=== PATIENT | female | born 1930 | race Caucasian/White ===

== ENCOUNTER → 2016-06-30 | Outpatient (CLI) | payer MEDICARE | LOC: LAB.O 09:13 | PROVIDERS: ATTEND Internal Medicine Interventional Cardiology | DX: Z01.810 Encounter for preprocedural cardiovascular examination (principal); Z01.812 Encounter for preprocedural laboratory examination; R07.9 Chest pain, unspecified ==

== ENCOUNTER → 2016-11-07 | Outpatient (CLI) | payer MEDICARE ==
--- NOTE | 2016-11-07 15:58 | CT ---
EXAM DESCRIPTION: Head CLINICAL HISTORY: HEADACHE COMPARISON: None TECHNIQUE: Noncontrast transaxial CT images of the head are obtained from base to vertex. This exam was performed according to our departmental dose-optimization program, which includes automated exposure control, adjustment of the mA and/or kV according to patient size and/or use of iterative reconstruction technique. FINDINGS: The midline structures are not displaced. Sulci are age-appropriate. There are areas of decreased attenuation in the periventricular white matter and the white matter of the centrum semiovale. There is no evidence of mass, mass-effect, hydrocephalus, or acute intracranial hemorrhage. No abnormal extra axial fluid collection is seen. Bone windows show no evidence of depressed skull fracture. Moderate calcifications of the intracranial carotid arteries are seen. Mild mucosal thickening is seen in some of the ethmoid air cells. IMPRESSION: 1. Age-appropriate atrophy with evidence of old small vessel ischemic type changes seen. 2. No acute abnormality is seen on noncontrast CT of the head. Electronically signed by: Ryan Elliott MD 11/07/2016 3:57 PM CDT
--- NOTE | 2016-11-07 16:03 | CT ---
EXAM DESCRIPTION: Cervical Spine CLINICAL HISTORY: NECK PAIN COMPARISON: None available. TECHNIQUE: Axial noncontast CT of the cervical spine with coronal and sagittal reformats. This exam was performed according to our departmental dose-optimization program, which includes automated exposure control, adjustment of the mA and/or kV according to patient size and/or use of iterative reconstruction technique. FINDINGS: Osseous structures are diffusely osteopenic. No acute fracture or posttraumatic positional abnormality of the cervical spine is seen. Mild disc space narrowing and spondylitic changes of the cervical spine is seen with multilevel facet arthropathy most significant on the right at C4-5. No significant spinal canal stenosis seen. No significant foraminal encroachment. Degenerative changes between the anterior arch of C1 and the odontoid are seen. Visualized skull base is unremarkable. Soft tissues show severe right and mild left carotid artery calcifications with evidence of previous left carotid endarterectomy. IMPRESSION: No CT evidence of acute fracture or posttraumatic positional abnormality of the cervical spine. Spondylitic changes and facet arthropathy of the cervical spine are seen. Severe right carotid artery calcifications are noted. Electronically signed by: Ryan Elliott MD 11/07/2016 4:02 PM CDT Workstation: [id number]
== END | disposition home or self-care (01) ==
LOC: CT 15:27
PROVIDERS: ATTEND Family Medicine
DX: M54.2 Cervicalgia (principal); R51 Headache

== ENCOUNTER → 2016-12-07 | Outpatient (CLI) | payer MEDICARE | END | disposition home or self-care (01) | LOC: GMAB 14:25 | PROVIDERS: ATTEND Family Medicine | DX: M25.572 Pain in left ankle and joints of left foot (principal) ==

== ENCOUNTER 2016-12-12 07:45 | Emergency (ER) | payer MEDICARE ==
[2016-12-12 08:00] VITALS: TEMP 97.8
[2016-12-12] MEDS ORDERED: SODIUM CHLORIDE 0.9% 500ML 500 ML IVS ONE (08:20)
[2016-12-12] MEDS ORDERED: ONDANSETRON INJ 4 MG/2 ML VIAL IV ONE (08:20)
--- NOTE | 2016-12-12 08:21 | ED.PDOC ---
History of Present Illness - General Chief Complaint: GI Problem Stated Complaint: N/V/D Time Seen by Provider: 12/12/16 08:18 Source: patient Exam Limitations: no limitations - History of Present Illness Initial Comments: Lavinia Eaton 86 y/o female stated that 3 days ago had nausea vomiting unable to keep anything down then yesterday had watery diarrhea no abdominal pain but with occassional cramps abdomen,no blood in stools Primary md called up prescription for phenergan took medication but not any better. Timing/Duration: other - 3 days Improving Factors: nothing Worsening Factors: eating Associated Symptoms: loss of appetite Allergies/Adverse Reactions: Allergies Penicillins Allergy (Verified 12/12/16 08:01) Home Medications: Ambulatory Orders Amlodipine Besylate [Norvasc] 10 mg PO HS 05/08/13 Aspirin [Aspirin 81] 162 mg PO HS 05/08/13 Esomeprazole Magnesium [Nexium] 40 mg PO AM 05/08/13 Levothyroxine Sodium [Synthroid] 125 mcg PO AM 05/08/13 Lovastatin 40 mg PO HS 05/08/13 Nebivolol HCl [Bystolic] 5 mg PO HS 05/08/13 Furosemide [Lasix] 20 mg PO BID #60 tab 05/10/13 Potassium Chloride Microencaps [Potassium Chloride Cr] 10 meq PO BID #60 tab Review of Systems - Review of Systems Constitutional: States: no symptoms reported EENTM: States: no symptoms reported Respiratory: States: no symptoms reported Cardiology: States: no symptoms reported Gastrointestinal/Abdominal: States: see HPI Genitourinary: States: no symptoms reported Musculoskeletal: States: no symptoms reported Skin: States: no symptoms reported Neurological: States: no symptoms reported Endocrine: States: no symptoms reported Hematologic/Lymphatic: States: no symptoms reported Past Medical History (General) - Patient Medical History Hx Cardiac Disorders: Yes Hx Congestive Heart Failure: Yes Hx Pacemaker: No Hx Hypertension: Yes Hx Thyroid Disease: Yes Hx Diabetes: No Hx Gastroesophageal Reflux: Yes Hx Cancer: Yes - breast left Hx MRSA: No Surgical History: cholecystectomy, other - left mastectomy,cardiac stent - Vaccination History Hx Tetanus, Diphtheria Vaccination: Yes - Social History Hx Tobacco Use: No Hx Alcohol Use: No Hx Substance Use: No Hx Substance Use Treatment: No Hx Depression: No - Activities of Daily Living Patient Lives Alone: Yes Hospice Agency (if applicable):: None Grooming Ability: Independent Eating (Feeding) Ability: Independent Toileting Ability: Independent - Female History Patient is a Female of Child Bearing Age (10 -59 yrs old): No Patient : No Family Medical History - Family History Mother Family History: Unknown Hx Cardiac Disease: Yes - multiple family members Hx Family Cancer: Yes - multiple family members-breast cancer,lymphoma Hx Family;Other: esophageal cancer son Physical Exam - Physical Exam General Appearance: Alert, Comfortable, No apparent distress Eye Exam: bilateral normal Ears, Nose, Throat: hearing grossly normal, normal ENT inspection, normal pharynx Neck: non-tender, full range of motion, supple Respiratory: chest non-tender, lungs clear, normal breath sounds, no respiratory distress Cardiovascular/Chest: normal peripheral pulses, no edema, no murmur, systolic murmur - g3/6 2nd ics left Peripheral Pulses: radial,right: 1+, radial,left: 1+ Gastrointestinal/Abdominal: normal bowel sounds, non tender, soft, no organomegaly Back Exam: normal inspection, no CVA tenderness Extremity: normal range of motion, non-tender, no pedal edema, no calf tenderness Neurologic: no motor/sensory deficits, alert, normal mood/affect, oriented x 3 Skin Exam: normal color, warm/dry Lymphatic: no adenopathy Progress - Progress Progress: 12/12/16 08:21 Vital Signs - 8 hr 12/12/16 07:51 Temperature 97.8 F Pulse Rate [ 97 H pulse ox] Respiratory 18 Rate Blood Pressure 148/64 [right arm] O2 Sat by Pulse 94 L Oximetry 12/12/16 11:33 12/12/16 08:20 URINALYSIS Stat 12/12/16 08:49 CLOSTRIDIUM DIFFICILE AG/TOXIN Stat Laboratory Results - last 24 hr 12/12/16 12/12/16 08:40 08:40 WBC 5.6 RBC 4.98 Hgb 14.4 Hct 43.8 MCV 88.0 MCH 28.9 MCHC 32.9 L RDW 14.1 Plt Count 271 MPV 8.1 Absolute Neuts (auto) 4.90 Absolute Lymphs (auto) 0.50 L Absolute Monos (auto) 0.20 Absolute Eos (auto) 0.00 Absolute Basos (auto) 0.00 Neutrophils % 86.7 H Lymphocytes % 9.7 L Monocytes % 3.3 Eosinophils % 0.0 L Basophils % 0.3 Sodium 138 Potassium 3.3 L Chloride 102 Carbon Dioxide 24 Anion Gap 15.3 BUN 26 H Creatinine 0.87 BUN/Creatinine Ratio 29.9 H Random Glucose 180 H Serum Osmolality 285.0 Calcium 9.6 - Results/Orders Results/Orders: FEELING BETTER. Departure - Departure Clinical Impression: Electrolyte imbalance, Abdominal cramping, generalized Nausea & vomiting Qualifiers: Vomiting type: unspecified Vomiting Intractability: unspecified Qualified Code( s): R11.2 - Nausea with vomiting, unspecified Diarrhea Qualifiers: Diarrhea type: unspecified type Qualified Code(s): R19.7 - Diarrhea, unspecified Time of Disposition: 11:30 Disposition: Discharge to Home or Self Care Condition: Good Departure Forms: ED Discharge - Pt. Copy, Patient Portal Self Enrollment Instructions: DI for Vomiting -- Adult, Probiotics May Decrease Intensity and Duration of Diarrhea Due to Infection, Nausea and Vomiting-Adult Diet: bland diet, other - AVOID GREASY,SPICY and dairy food until better Referrals: Jesús Valdovinos MD [Primary Care Provider] - 1-2 Weeks Home Medications: Ambulatory Orders Amlodipine Besylate [Norvasc] 10 mg PO HS 05/08/13 Aspirin [Aspirin 81] 162 mg PO HS 05/08/13 Esomeprazole Magnesium [Nexium] 40 mg PO AM 05/08/13 Levothyroxine Sodium [Synthroid] 125 mcg PO AM 05/08/13 Lovastatin 40 mg PO HS 05/08/13 Nebivolol HCl [Bystolic] 5 mg PO HS 05/08/13 Furosemide [Lasix] 20 mg PO BID #60 tab 05/10/13 Potassium Chloride Microencaps [Potassium Chloride Cr] 10 meq PO BID #60 tab Additional Instructions: RETURN TO EMERGENCY ROOM NEEDED
[2016-12-12] MEDS ORDERED: SUCRALFATE 1 GM/10 ML 1 GM UD PO ONE (10:34)
[2016-12-12 11:46] VITALS: BP 137/68; O2SAT 91
== END 2016-12-12 11:47 | disposition home or self-care (01) ==
LOC: ER 07:45
DX: R10.84 Generalized abdominal pain (principal); E87.8 Other disorders of electrolyte and fluid balance, not elsewhere classified; R11.2 Nausea with vomiting, unspecified; R19.7 Diarrhea, unspecified; I11.0 Hypertensive heart disease with heart failure; I50.9 Heart failure, unspecified; K21.9 Gastro-esophageal reflux disease without esophagitis; E07.9 Disorder of thyroid, unspecified; Z85.3 Personal history of malignant neoplasm of breast; Z90.12 Acquired absence of left breast and nipple; Z88.0 Allergy status to penicillin; Z79.82 Long term (current) use of aspirin; Z79.899 Other long term (current) drug therapy
CPT/HCPCS: 36415; 80048; 85025; J2405; J7040

== ENCOUNTER → 2017-05-01 | Outpatient (CLI) | payer MEDICARE | END | disposition home or self-care (01) | LOC: GMAB 14:56 | PROVIDERS: ATTEND Family Medicine | DX: E03.9 Hypothyroidism, unspecified (principal) ==

== ENCOUNTER → 2018-02-04 | Outpatient (CLI) | payer MEDICARE ==
--- NOTE | 2018-02-04 17:30 | CT ---
EXAM DESCRIPTION: Head CLINICAL HISTORY: HEADACHES ,DIZZINESS, COMPARISON: Previous CT head November 07, 2016 TECHNIQUE: Noncontrast head CT was performed with routine protocol. FINDINGS: Normal gates-white matter differentiation. Ventricles and sulci are prominent consistent with age-related cerebral volume loss. No high density hemorrhage, focal edema or shift of the midline. No sulcal effacement. Normal orbital contents. Basilar cisterns appear clear. Intact calvarium with no fracture or lytic lesion. Normal aeration of tympanic cavities and mastoid air cells. No fluid levels in the paranasal sinuses. Skull base appears intact. Symmetrical internal auditory canals. Coronal and sagittal reformatted images confirm the findings. No significant change since previous study. IMPRESSION: No acute intracranial pathologic process. This exam was performed according to our departmental dose-optimization program, which includes automated exposure control, adjustment of the mA and/or kV according to patient size and/or use of iterative reconstruction technique. Total DLP equals 752.48 mGycm. Electronically signed by: Sumit Huerta MD 02/04/2018 5:28 PM CDT
== END ==
LOC: CT 16:01
PROVIDERS: ATTEND Family Medicine
DX: R51 Headache (principal); R42 Dizziness and giddiness

== ENCOUNTER → 2018-05-22 | Outpatient (CLI) | payer MEDICARE | LOC: GMAE 15:08 | PROVIDERS: ATTEND Family Medicine | DX: E03.9 Hypothyroidism, unspecified (principal) ==

== ENCOUNTER 2018-06-29 18:29 | Emergency (ER) | payer MEDICARE ==
[2018-06-29 18:49] VITALS: TEMP 98.8; O2SAT 97
--- NOTE | 2018-06-29 18:57 | ED.PDOC ---
History of Present Illness - General Chief Complaint: Trauma Stated Complaint: R-sided discomfort Time Seen by Provider: 06/29/18 18:37 Source: patient Exam Limitations: no limitations - History of Present Illness Initial Comments: Lavinia Eaton 88 y/o female stated while she was on top of her step stool 27 Jun 2018 at home reaching for stuff on her cabinet pantry she slipped and fell back wards landed right side of her chest on the countertop.Denies syncopal episode,head/neck,back,hip,or leg pains .Had dull ache lower rib cage since incident. Timing/Duration: other - 2 days ago Severity: moderate Improving Factors: rest Worsening Factors: movement Associated Symptoms: other - see hpi Allergies/Adverse Reactions: Allergies Penicillins Allergy (Verified 06/29/18 18:49) Home Medications: Ambulatory Orders Amlodipine Besylate [Norvasc] 10 mg PO HS 05/08/13 Aspirin [Aspirin 81] 81 mg PO HS 05/08/13 Lovastatin 40 mg PO HS 05/08/13 Acetaminophen W/ Codeine [Tylenol w/Codeine 300-30 mg] 1 tab PO Q6HRS PRN #30 tab 06/29/18 Calcium Carbonate-Cholecalcife [Caltrate 600+D] 1 tab PO BID 06/29/18 Furosemide [Lasix] 40 mg PO DAILY 06/29/18 Levothyroxine Sodium [Synthroid] 100 mcg PO DAILY 06/29/18 Metoprolol Tartrate [Lopressor] 50 mg PO DAILY 06/29/18 Multiple Vitamins W/ Minerals [Preservision/Lutein] 1 cap PO DAILY 06/29/18 Potassium Chloride Microencaps [Potassium Chloride Cr] 10 meq PO DAILY 06/29/18 Spironolactone 25 mg PO DAILY 06/29/18 Zoledronic Acid [Reclast] 5 mg IV .YEARLY 06/29/18 raNITIdine HCL [Zantac] 150 mg PO BID 06/29/18 Review of Systems - Review of Systems Constitutional: States: no symptoms reported EENTM: States: no symptoms reported Respiratory: States: see HPI, other - rib pain Cardiology: States: no symptoms reported Gastrointestinal/Abdominal: States: no symptoms reported All other Systems: Reviewed and Negative, No Change from Baseline 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 Hx Congestive Heart Failure: Yes Hx Pacemaker: No Hx Hypertension: Yes Hx Thyroid Disease: Yes Hx Diabetes: No Hx Gastroesophageal Reflux: Yes Hx Cancer: Yes - L breast Hx MRSA: No Surgical History: cholecystectomy, other - mastectomy left,cardiacstent - Vaccination History Hx Tetanus, Diphtheria Vaccination: Yes Hx Influenza Vaccination: Yes - 2017 Hx Pneumococcal Vaccination: Yes - 2017 - Social History Hx Tobacco Use: Yes - Quit in 1979 Hx Alcohol Use: No Hx Substance Use: No Hx Substance Use Treatment: No Hx Depression: No - Female History Patient : No Family Medical History - Family History Mother Family History: Unknown Hx Cardiac Disease: Yes - multiple family members Hx Family Cancer: Yes - multiple family members-breast cancer,lymphoma Hx Family;Other: esophageal cancer son Physical Exam - Physical Exam General Appearance: Alert, Comfortable, No apparent distress Eye Exam: bilateral normal Ears, Nose, Throat: hearing grossly normal, normal ENT inspection Neck: non-tender, supple, normal inspection Respiratory: chest non-tender, lungs clear, normal breath sounds, no respiratory distress, other - tenderness right lower rib cage Cardiovascular/Chest: normal peripheral pulses, regular rate, rhythm, no murmur Peripheral Pulses: radial,right: 2+, radial,left: 2+ Gastrointestinal/Abdominal: non tender, soft Extremity: non-tender, no pedal edema, no calf tenderness Neurologic: alert, oriented x 3 Skin Exam: normal color, warm/dry Progress - Progress Progress: 06/29/18 19:30 Vital Signs - 8 hr 06/29/18 18:35 Temperature 98.8 F Pulse Rate [ 95 H Left Radial] Respiratory 18 Rate Blood Pressure 158/67 [Right Arm] O2 Sat by Pulse 97 Oximetry 06/29/18 19:34 discuss Rib series and CXR result with patient no fractured rib - EKG/XRAY/CT XRAY: chest - no pneumothorax;no rib fracture Departure - Departure Clinical Impression: Rib pain on right side Fall in home Qualifiers: Encounter type: initial encounter Qualified Code(s): W19.XXXA - Unspecified fall, initial encounter; Y92.009 - Unspecified place in unspecified non- institutional (private) residence as the place of occurrence of the external cause Contusion of rib on right side Qualifiers: Encounter type: initial encounter Qualified Code(s): S20.211A - Contusion of right front wall of thorax, initial encounter Time of Disposition: 19:36 Disposition: Discharge to Home or Self Care Condition: Fair Departure Forms: ED Discharge - Pt. Copy, Patient Portal Self Enrollment Instructions: Bruised Rib (DC), Bruised Rib Referrals: Jesús Valdovinos MD [Primary Care Provider] - 1-2 Weeks Prescriptions: Acetaminophen W/ Codeine [Tylenol w/Codeine 300-30 mg] 1 tab PO Q6HRS PRN #30 tab PRN Reason: Pain Home Medications: Ambulatory Orders Amlodipine Besylate [Norvasc] 10 mg PO HS 05/08/13 Aspirin [Aspirin 81] 81 mg PO HS 05/08/13 Lovastatin 40 mg PO HS 05/08/13 Acetaminophen W/ Codeine [Tylenol w/Codeine 300-30 mg] 1 tab PO Q6HRS PRN #30 tab 06/29/18 Calcium Carbonate-Cholecalcife [Caltrate 600+D] 1 tab PO BID 06/29/18 Furosemide [Lasix] 40 mg PO DAILY 06/29/18 Levothyroxine Sodium [Synthroid] 100 mcg PO DAILY 06/29/18 Metoprolol Tartrate [Lopressor] 50 mg PO DAILY 06/29/18 Multiple Vitamins W/ Minerals [Preservision/Lutein] 1 cap PO DAILY 06/29/18 Potassium Chloride Microencaps [Potassium Chloride Cr] 10 meq PO DAILY 06/29/18 Spironolactone 25 mg PO DAILY 06/29/18 Zoledronic Acid [Reclast] 5 mg IV .YEARLY 06/29/18 raNITIdine HCL [Zantac] 150 mg PO BID 06/29/18 Additional Instructions: Follow up with primary Md25 Jun 2018 for recheck as needed;Return to ER as needed;Continue with all home medications
--- NOTE | 2018-06-29 19:19 | RAD ---
EXAM: Chest,1 View (accession [id number]), Ribs,Right 3 Views (accession [id number]) CLINICAL INDICATION: Right rib pain COMPARISON: None FINDINGS: A single view of the chest reveals that the heart size is normal. The pulmonary vessels are unremarkable. The lungs are clear. There is no pneumothorax or pleural effusion. 3views of the right ribs reveal no fractures or bone lesions. IMPRESSION: Negative chest and right rib radiographs. Electronically signed by: Glenn Hilton MD 06/29/2018 7:16 PM [facility]
--- NOTE | 2018-06-29 19:19 | RAD ---
EXAM: Chest,1 View (accession [id number]), Ribs,Right 3 Views (accession [id number]) CLINICAL INDICATION: Right rib pain COMPARISON: None FINDINGS: A single view of the chest reveals that the heart size is normal. The pulmonary vessels are unremarkable. The lungs are clear. There is no pneumothorax or pleural effusion. 3views of the right ribs reveal no fractures or bone lesions. IMPRESSION: Negative chest and right rib radiographs. Electronically signed by: Glenn Hilton MD 06/29/2018 7:16 PM [facility]
[2018-06-29] MEDS ORDERED: HYDROCOD/APAP 7.5/325 (ER DISP) #3 TAB PO ONE (19:36)
[2018-06-29] MEDS ORDERED: HYDROcodone 7.5MG/APAP 325MG 1 EA TAB PO ONE (19:36)
[2018-06-29 19:51] VITALS: BP 167/91
== END 2018-06-29 19:50 | disposition home or self-care (01) ==
LOC: ER 18:29
DX: S20.211A Contusion of right front wall of thorax, initial encounter (principal); I11.0 Hypertensive heart disease with heart failure; I50.9 Heart failure, unspecified; E07.9 Disorder of thyroid, unspecified; K21.9 Gastro-esophageal reflux disease without esophagitis; W17.89XA Other fall from one level to another, initial encounter; Y92.009 Unspecified place in unspecified non-institutional (private) residence as the place of occurrence of the external cause; Z85.3 Personal history of malignant neoplasm of breast; Z87.891 Personal history of nicotine dependence; Z79.899 Other long term (current) drug therapy; Z79.82 Long term (current) use of aspirin

== ENCOUNTER → 2018-09-05 | Outpatient (CLI) | payer MEDICARE | LOC: GMAE 14:14 | PROVIDERS: ATTEND Family Medicine | DX: E03.9 Hypothyroidism, unspecified (principal) ==

== ENCOUNTER → 2018-11-05 | Outpatient (CLI) | payer MEDICARE | LOC: YCHH 15:25 | PROVIDERS: ATTEND Family Medicine | DX: R79.89 Other specified abnormal findings of blood chemistry (principal); D64.9 Anemia, unspecified ==

== ENCOUNTER → 2018-11-22 | Outpatient (CLI) | payer MEDICARE ==
--- NOTE | 2018-11-25 07:27 | MRI ---
EXAM DESCRIPTION: MRI left hip CLINICAL HISTORY: Left hip pain. Fall injury 2 weeks ago. Right hip arthroplasty 6 weeks ago COMPARISON: None. TECHNIQUE: Multiplanar, multisequence MR images of the left hip FINDINGS: No fracture of the left femur or pelvis. Expected postoperative changes right hip arthroplasty. No acute periprosthetic fracture or osteolysis. Expected edema in the proximal femur. Island of red marrow in the proximal left femoral metaphysis. No neoplastic marrow lesion. Degenerative changes in the left hip labrum with intralabral degenerative changes and partial detachment cleft anterior superior and superior lateral. Grade 4 chondrosis/chronic osteochondral lesion of the posterior superior femoral head with marrow edema over about 9 mm. 4 mm cyst along the posterior superior acetabular rim. Physiologic joint fluid No acute tendon abnormality or muscle abnormality Sigmoid diverticulosis without diverticulitis. 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 No acute osteochondral lesion of the left hip No fracture of the proximal femora or pelvis. Expected postoperative changes recent right hip arthroplasty Electronically signed by: Ravindra Mcfarland MD 11/25/2018 7:25 AM CDT
== END ==
LOC: MRI 13:46
PROVIDERS: ATTEND Family Medicine
DX: M16.12 Unilateral primary osteoarthritis, left hip (principal); M94.8X5 Other specified disorders of cartilage, thigh; Z98.890 Other specified postprocedural states; Z96.642 Presence of left artificial hip joint

== ENCOUNTER → 2019-04-25 | Outpatient (CLI) | payer MEDICARE ==
--- NOTE | 2019-04-27 16:47 | MRI ---
EXAM DESCRIPTION: Knee,Right: MRI. CLINICAL HISTORY: 88 years Female KNEE PAIN COMPARISON: None. TECHNIQUE: Multiplanar, high-field MRI, multiple sequences, without contrast: right ortho FINDINGS: Abnormal signal in the inferior articular surface of the anterior horn of the lateral meniscus extends to the into the substance. Also involving the anterior root of the anterior horn. Diffuse abnormal signal in the body of the anterior horn and in the free edge of the posterior horn. Minimal subcortical edema on the posterior promontory of the lateral tibia, inferior to the plateau. Moderate, chondromalacia in the lateral compartment with marginal spurs. Minimal effusion in the lateral compartment. Minimal chondromalacia of the medial compartment with no subchondral edema. No significant effusion. Minimal marginal spurs, mostly on the inner margin. Desiccation in the medial meniscus but no definite tear. Medial collateral ligament is unremarkable. Elements of the lateral collateral ligament are intact with adjacent soft tissue edema. Anterior cruciate ligament is minimally attenuated metacarpal with extension. Intra-cruciate space effusion. PCL is unremarkable. Subcortical erosions and spurs on the tibial spine around the ACL insertion. Chondromalacia lateral patellar facet minimal chondromalacia medial patellar facet with mild to moderate chondromalacia in the trochlear cartilage. Minimal edema associated with a spur on the medial margin of the trochlea. Suprapatellar effusion and superior patellar plica. Intermediate signal in the distal quadriceps tendon insertion. Intermediate signal in the patellar tendon insertion on the tibia. Minimal edema in the infrapatellar fat pad.. IMPRESSION: 1. Desiccation and degeneration and multiple tears in the anterior horn more than the posterior horn lateral meniscus as described. Moderate chondromalacia and decrease in the lateral compartment space. Lateral compartment effusion. 2. Mild to moderate chondromalacia medial compartment with desiccation of the medial meniscus but no definite tear. 3. Mild degeneration of the anterior cruciate ligament with intra-cruciate space effusion. No significant or acute abnormality of the medial collateral ligament or lateral collateral ligament complex. 4. Suprapatellar effusion with minimal degeneration of the distal quadriceps tendon insertion on the patella and the distal patellar tendon insertion on the tibia. Superior and inferior patellar plica. Moderate chondromalacia in the patellofemoral cartilage with focal grade 3 chondrosis on the medial edge of the medial femoral trochlea. Electronically signed by: Theo Alexandre MD 04/27/2019 4:46 PM [facility]
== END ==
LOC: MRI 13:29
PROVIDERS: ATTEND Family Medicine
DX: S83.281A Other tear of lateral meniscus, current injury, right knee, initial encounter (principal); M17.11 Unilateral primary osteoarthritis, right knee; M94.261 Chondromalacia, right knee; M25.461 Effusion, right knee

== ENCOUNTER → 2019-08-05 | Outpatient (CLI) | payer MEDICARE | LOC: GMAE 10:20 | PROVIDERS: ATTEND Family Medicine | DX: E03.9 Hypothyroidism, unspecified (principal); I10 Essential (primary) hypertension; E78.2 Mixed hyperlipidemia ==

== ENCOUNTER 2019-09-28 12:02 | Emergency (ER) | payer MEDICARE ==
--- NOTE | 2019-09-28 12:10 | ED.PDOC ---
History of Present Illness - General Time Seen by Provider: 09/28/19 12:10 - History of Present Illness Initial Comments: 89-year-old female with known history of CAD, on aspirin, presents with a week of progressive angina and shortness of breath, worse this morning. 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 Denies cough, fevers, other illness. Allergies/Adverse Reactions: Allergies Penicillins Allergy (Verified 09/28/19 12:26) Home Medications: Ambulatory Orders Amlodipine Besylate [Norvasc] 10 mg PO HS 05/08/13 Aspirin [Aspirin 81] 162 mg PO HS 05/08/13 Lovastatin 40 mg PO HS 05/08/13 Acetaminophen W/ Codeine [Tylenol w/Codeine 300-30 mg] 1 tab PO Q6HRS PRN #30 tab 06/29/18 Calcium Carbonate-Cholecalcife [Caltrate 600+D] 1 tab PO DAILY 06/29/18 Furosemide [Lasix] 40 mg PO DAILY 06/29/18 Levothyroxine Sodium [Synthroid] 100 mcg PO DAILY 06/29/18 Metoprolol Tartrate [Lopressor] 100 mg PO DAILY 06/29/18 Multiple Vitamins W/ Minerals [Preservision/Lutein] 1 cap PO DAILY 06/29/18 Potassium Chloride Microencaps [Potassium Chloride Cr] 10 meq PO DAILY 06/29/18 Spironolactone 25 mg PO DAILY 06/29/18 Zoledronic Acid [Reclast] 5 mg IV .YEARLY 06/29/18 raNITIdine HCL [Zantac] 150 mg PO BID 06/29/18 Nitroglycerin 0.4 mg SL PRN PRN 09/28/19 Tramadol HCl 50 mg PO PRN PRN 09/28/19 Review of Systems - Review of Systems Review of Systems: 09/28/19 12:18 General: Denies generalized weakness, fever, arthralgia/myalgia HEENT: Denies sore throat, rhinorrhea Cardiovascular: has chest pain, palpitations Respiratory: Denies SOB, cough Gastrointestinal: Denies abdominal pain, vomiting, diarrhea : Denies dysuria, frequency Musculoskeletal: Denies extremity pain, extremity swelling Integument: Denies rash, itching Neuro: Denies focal weakness or numbness Psych: Denies depression, hallucinations. 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 Hx Congestive Heart Failure: Yes Hx Pacemaker: No Hx Hypertension: Yes Hx Thyroid Disease: Yes Hx Diabetes: No Hx Gastroesophageal Reflux: Yes Hx Cancer: Yes - L breast Hx MRSA: No - Vaccination History Hx Tetanus, Diphtheria Vaccination: Yes Hx Influenza Vaccination: Yes - 2017 Hx Pneumococcal Vaccination: Yes - 2017 - Social History Hx Tobacco Use: Yes - Quit in 1979 Hx Alcohol Use: No Hx Substance Use: No Hx Substance Use Treatment: No Hx Depression: No - Female History Patient : No Family Medical History - Family History Mother Family History: Unknown Hx Cardiac Disease: Yes - multiple family members Hx Family Cancer: Yes - multiple family members-breast cancer,lymphoma Hx Family;Other: esophageal cancer son Physical Exam - Physical Exam Comments: General Appearance: Patient is awake and alert. Skin: Warm and dry. No diaphoresis. No rash or other lesions. Head: Normocephalic/atraumatic. Eyes: PERRL, lids, conjunctiva and sclera unremarkable. EOMI intact. ENT: No nasal discharge. Oropharynx. Without erythema, exudate, lesions. Moist mucous membranes. Neck: Supple. No LAD. No tenderness. No JVD noted. Respiratory: Normal rate and effort. Breath sounds clear bilaterally. Cardiovascular: Regular rate. Heart sounds normal. No murmur. GI: Abdomen soft, non-distended and non-tender. No rebound/guarding. Bowel sounds normal. Back: No tenderness Musculoskeletal: Extremities- Normal range of motion. No effusion, cyanosis, edema. Neurological: Alert. No facial palsy. Speech clear. Gag intact. No motor deficit, str symmetric. No sensory deficit. Progress - Results/Orders Results/Orders: Vital Signs - 24 hr 09/28/19 09/28/19 09/28/19 12:10 12:20 13:00 Temperature 97.5 F L Pulse Rate [ 84 84 72 Pulse ox] Respiratory 22 22 16 Rate Blood Pressure 157/80 129/48 [R brachial] O2 Sat by Pulse 96 95 Oximetry 09/28/19 09/28/19 13:16 14:00 Temperature Pulse Rate [ 72 Pulse ox] Respiratory 18 Rate Blood Pressure 147/54 [R brachial] O2 Sat by Pulse 96 96 Oximetry 09/28/19 12:10 Sodium Chloride 0.9% (Flush) [Saline Flush Syringe] 3 ml IV PRN PRN 09/28/19 12:11 Oxygen Stat 09/28/19 12:15 EKG STAT 09/29/19 09:00 Pulse Ox Daily Laboratory Results WBC 5.1 K/mm3 (4.8-10.8) 09/28/19 12: RBC 4.18 M/mm3 (4.20-5.40) L 09/28/19 12:27 Hgb 11.2 gm/dL (12.0-16.0) L 09/28/19 12:27 Hct 34.2 % (36.0-47.0) L 09/28/19 12: MCV 81.8 fl (81.0-99.0) 09/28/19 12: MCH 26.8 pg (27.0-31.0) L 09/28/19 12: MCHC 32.8 g/dL (33.0-37.0) L 09/28/19 12: RDW 16.5 % (11.5-14.5) H 09/28/19 12:27 Plt Count 288 K/mm3 (130-400) 09/28/19 12: MPV 8.0 fl (7.40-10.4) 09/28/19 12:27 Absolute Neuts (auto) 2.90 K/uL (1.8-6.8) 09/28/19 12: Absolute Lymphs (auto) 1.20 K/uL (1.0-3.4) 09/28/19 12: Absolute Monos (auto) 0.60 K/uL (0.2-0.8) 09/28/19 12: Absolute Eos (auto) 0.30 K/uL (0.0-0.4) 09/28/19 12: Absolute Basos (auto) 0.00 K/uL (0.0-0.1) 09/28/19 12: Neutrophils % 58.1 % (42.0-78.0) 09/28/19 12: Lymphocytes % 23.1 % (20.0-50.0) 09/28/19 12: Monocytes % 12.7 % (2.0-9.0) H 09/28/19 12:27 Eosinophils % 5.3 % (1.0-5.0) H 09/28/19 12:27 Basophils % 0.8 % (0.0-2.0) 09/28/19 12:27 Differential Comment Cancelled 09/28/19 12:27 RBC Morphology Cancelled 09/28/19 12:27 PT 10.1 SECONDS (9.0-10.9) 09/28/19 12:27 INR 1.02 (0.9-1.15) 09/28/19 12:27 PTT (SP) 27.5 SECONDS (21.8-31.6) 09/28/19 12:27 Sodium 137 mmol/L (135-145) 09/28/19 12:27 Potassium 3.8 mmol/L (3.6-5.0) 09/28/19 12: Chloride 104 mmol/L (101-111) 09/28/19 12: Carbon Dioxide 27 mmol/L (21-31) 09/28/19 12:27 Anion Gap 9.8 (12-18) L 09/28/19 12:27 BUN 37 mg/dL (7-18) H 09/28/19 12:27 Creatinine 0.92 mg/dL (0.6-1.3) 09/28/19 12: BUN/Creatinine Ratio 40.2 (10-20) H 09/28/19 12: Random Glucose 95 mg/dL (70-105) 09/28/19 12: Serum Osmolality Not Reportable 09/28/19 12: Calcium 9.3 mg/dL (8.4-10.2) 09/28/19 12: Magnesium 2.2 mg/dL (1.8-2.5) 09/28/19 12:27 Total Bilirubin 0.4 mg/dL (0.2-1.0) 09/28/19 12:27 Direct Bilirubin 0.1 mg/dL (0-0.2) 09/28/19 12: Indirect Bilirubin 0.3 mg/dL (0.2-0.8) 09/28/19 12:27 AST 18 IU/L (10-42) 09/28/19 12:27 ALT 19 IU/L (10-60) 09/28/19 12:27 Alkaline Phosphatase 48 IU/L (42-121) 09/28/19 12:27 Creatine Kinase 39 IU/L (26-140) 09/28/19 12:27 CK-MB (CK-2) 1.4 ng/mL (0.0-4.4) 09/28/19 12:27 CK-MB (CK-2) % 3.59 % (0.0-4.3) 09/28/19 12:27 Troponin I < 0.02 ng/mL (0.01-0.05) 09/28/19 12:27 B-Natriuretic Peptide 456.0 pg/ml (0-100) H* 09/28/19 12:27 Serum Total Protein 6.8 gm/dL (6.4-8.2) 09/28/19 12:27 Albumin 3.7 g/dl (3.2-5.5) 09/28/19 12:27 Globulin Cancelled 09/28/19 12:27 Albumin/Globulin Ratio Cancelled 09/28/19 12:27 Urine Color Yellow (Yellow) 09/28/19 13:48 Urine Appearance Clear (Clear) 09/28/19 13:48 Urine pH 7.0 (4.5-7.8) 09/28/19 13:48 Ur Specific [place] 1.020 (1.005-1.030) 09/28/19 13:48 Urine Protein Negative mg/dL 09/28/19 13:48 Urine Glucose (UA) Negative mg/dL (Negative) 09/28/19 13:48 Urine Ketones Negative mg/dL (NEGATIVE) 09/28/19 13:48 Urine Blood Negative (Negative) 09/28/19 13:48 Urine Nitrite Negative 09/28/19 13:48 Urine Bilirubin Negative (NEGATIVE) 09/28/19 13:48 Urine Urobilinogen 0.2 mg/dL (0.2-1.0) 09/28/19 13:48 Ur Leukocyte Esterase Negative (Negative) 09/28/19 13:48 Urine RBC 0 /hpf 09/28/19 13:48 Urine WBC 0 /hpf 09/28/19 13:48 Ur Epithelial Cells 3-5 /hpf 09/28/19 13:48 Urine Bacteria Rare 09/28/19 13:48 Safety Stop Patient feels better. good response to diuretic dose here in ED. VS, exam remain reassuring. Labs, imaging are without acute abnormality. I have discussed findings, diff dx, plan of care, need for follow-up, and reasons to return to the ED. Safety Stop (Diagnostic Time-Out): Tachycardia: No Diagnostic Studies: Reviewed Diagnostic Certainty: moderate Patient/family feels safe with discharge: Yes - EKG/XRAY/CT EKG: Sinus - 78, RBBB, no ST T wave changes XRAY: chest - no acute disease - Consult/PCP Time Called: 13:57 Consult/PCP: Dr. Abraham, Cardiology Departure - Departure Clinical Impression: Congestive heart failure, Chest pain Time of Disposition: 14:22 Disposition: Discharge to Home or Self Care Condition: Good Departure Forms: ED Discharge - Pt. Copy Instructions: Heart Failure, Adult (DC) Diet: resume usual diet Activity: increase activity as tolerated Referrals: OTTONIEL ABRAHAM MD [Consulting Staff] - 1-5 Days (on , as scheduled) Home Medications: Ambulatory Orders Amlodipine Besylate [Norvasc] 10 mg PO HS 05/08/13 Aspirin [Aspirin 81] 162 mg PO HS 05/08/13 Lovastatin 40 mg PO HS 05/08/13 Acetaminophen W/ Codeine [Tylenol w/Codeine 300-30 mg] 1 tab PO Q6HRS PRN #30 tab 06/29/18 Calcium Carbonate-Cholecalcife [Caltrate 600+D] 1 tab PO DAILY 06/29/18 Furosemide [Lasix] 40 mg PO DAILY 06/29/18 Levothyroxine Sodium [Synthroid] 100 mcg PO DAILY 06/29/18 Metoprolol Tartrate [Lopressor] 100 mg PO DAILY 06/29/18 Multiple Vitamins W/ Minerals [Preservision/Lutein] 1 cap PO DAILY 06/29/18 Potassium Chloride Microencaps [Potassium Chloride Cr] 10 meq PO DAILY 06/29/18 Spironolactone 25 mg PO DAILY 06/29/18 Zoledronic Acid [Reclast] 5 mg IV .YEARLY 06/29/18 raNITIdine HCL [Zantac] 150 mg PO BID 06/29/18 Nitroglycerin 0.4 mg SL PRN PRN 09/28/19 Tramadol HCl 50 mg PO PRN PRN 09/28/19 Additional Instructions: Please take your diuretic furosemide EVERY OTHER DAY for the next 5 days, and plan follow-up w Dr. Abraham. Comments: Jama Garcia MD Emergency Medicine #[id number]
--- NOTE | 2019-09-28 12:36 | RAD ---
CHEST 1 VIEW on 09/28/2019 CLINICAL INDICATION: Chest pain COMPARISON: 06/29/2018 FINDINGS: There is scoliosis of the spine. Vascular calcification is noted in the aorta. There is mild elevation of the right hemidiaphragm. Heart is upper limits normal for size. The lungs are clear. Pulmonary vascularity is within normal limits. IMPRESSION: No acute disease. Electronically signed by: Surya De 09/28/2019 12:35 PM CDT
[2019-09-28] MEDS: FUROSEMIDE INJ 40 MG/4 ML VIAL IV ONE (13:21)
[2019-09-28] MEDS: SODIUM CHLORIDE 0.9% (FLUSH) 10 ML SYG IV PRN (13:22)
[2019-09-28 14:34] VITALS: BP 149/51; TEMP 97.7; O2SAT 97
== END 2019-09-28 14:30 | disposition home or self-care (01) ==
LOC: ER 12:02
DX: I50.9 Heart failure, unspecified (principal); R07.9 Chest pain, unspecified; I25.10 Atherosclerotic heart disease of native coronary artery without angina pectoris; I45.10 Unspecified right bundle-branch block; Z87.891 Personal history of nicotine dependence; Z79.82 Long term (current) use of aspirin; Z79.899 Other long term (current) drug therapy
CPT/HCPCS: 36415; 71045; 80048; 80076; 81001; 82550; 82553; 83880; 84484; 85025; 85610; 85730; 93005; 94760; J1940

== ENCOUNTER → 2019-11-19 | Outpatient (CLI) | payer MEDICARE ==
--- NOTE | 2019-11-19 12:37 | RAD ---
EXAM DESCRIPTION: Chest,2 Views CLINICAL HISTORY: 89 years Female, DYSPNEA COMPARISON: 09/28/2019 FINDINGS: 2 views/radiographs Heart size and pulmonary vessels are within normal limits. There is no pneumothorax or pleural effusion. The lungs are clear bilaterally. The soft tissues are unremarkable. No acute osseous findings. Emphysema. Atherosclerotic disease. IMPRESSION: No acute cardiopulmonary abnormality. Electronically signed by: Oscar Coleman MD 11/19/2019 12:35 PM CDT
== END ==
LOC: RESP 10:05
PROVIDERS: ATTEND Family Medicine
DX: R06.00 Dyspnea, unspecified (principal)

== ENCOUNTER → 2020-07-06 | Outpatient (CLI) | payer MEDICARE ==
--- NOTE | 2020-07-07 10:38 | NM ---
EXAM DESCRIPTION: Bone Scan, Whole Body: Nuclear Medicine CLINICAL HISTORY: 89 years Female abnormal finding of lung field . History of breast cancer. Bilateral breast implants. COMPARISON: None. TECHNIQUE: Patient injected with 26.3 mCi of technetium 99M MDP IV. Delayed gamma camera images whole body from anterior and posterior were obtained 3 hr after injection. Also images of the thorax and abdomen recorded from oblique projections. FINDINGS: Focal uptake seen in the cervical spine on the right anterior aspect at approximately C5 level. Focal uptake left sternoclavicular junction or joint or left first costosternal joint. Focal uptake in the anterior right sixth rib or costochondral junction. Focal uptake in the right posterior mid 10th rib. Focal uptake in the posterior lateral left eighth rib. Attenuation in the right femoral neck and head and proximal femoral shaft from prior arthroplasty. Focal uptake in the proximal shaft of the right femur just below the femoral stem. Minimal activity in the right knee region more lateral than medial. Multiple small foci of activity in the bilateral shoulder joint regions more right than left. Unusual focal uptake in the right inferior humeral head or medial neck. No other abnormal lung michel diandra bone activity in the extremities pelvic bone or skull. Activity in the bilateral wrists.. IMPRESSION: Focal sites of uptake in the ribs are concerning for metastasis versus trauma. Recommend rib series. If these findings are equivocal, recommend CT scan of the ribs. Also consider radiographs of the bilateral shoulders, cervical spine, right knee, and right hip. Correlate for pain in the proximal shaft of the right femur near the tip of the femoral stem of the right hip prosthesis. More diffuse activity in left shoulder and wrist and right knee is most likely arthrosis.. Electronically signed by: Theo Alexandre MD 07/07/2020 10:36 AM [facility]
== END ==
LOC: NM 08:55
PROVIDERS: ATTEND Family Medicine
DX: R91.8 Other nonspecific abnormal finding of lung field (principal); M89.9 Disorder of bone, unspecified